=== PATIENT | male | born 1975 | race African-American/Black ===

== ENCOUNTER 2020-06-02 09:59 | Emergency (ER) | payer OTHER ==
[2020-06-02 10:10] VITALS: BP 130/81; PULSE 68; TEMP 98.1; BMI 26.4
[2020-06-02] MEDS ORDERED: IBUPROFEN 600 MG TABLET (FP) PO ONE ×2 (10:31→10:33)
--- NOTE | 2020-06-02 10:58 | PDOC ---
History of Present Illness - General Chief Complaint: Pain, Acute Stated Complaint: LFT HIP INJURY Time Seen by Provider: 06/02/20 10:26 History Source: Patient Exam Limitations: No Limitations - History of Present Illness Initial Comments: 06/02/20 10:52 Patient is a 45-year-old male with no past medical history who presents to the ED with complaint of left hip/groin pain that has been worsening over the last 1 week. 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 He stepped into the truck at one point and felt sharp pain in his left groin. He states he has difficulty with walking. He denies any numbness or tingling. He denies any back pain. He denies any falls. He has no allergies to medications. He has taken extra strength Tylenol without any relief of his pain. Past History - Medical History Allergies/Adverse Reactions: Allergies Allergy/AdvReac Type Severity Reaction Status Date / Time No Known Allergies Allergy Verified 11/19/13 13:28 Home Medications: Ambulatory Orders No Home Medications 0 dose .ROUTE UTDICT 11/19/13 Metaxalone [Skelaxin] 800 mg PO TID PRN #20 tablet 06/30/15 Ibuprofen [Motrin -] 600 mg PO TID PRN #21 tablet 06/02/20 Asthma: Yes COPD: No - Psycho-Social/Smoking History Smoking History: Never smoked Have you smoked in the past 12 months: No Number of Cigarettes Smoked Daily: 0 Information on smoking cessation initiated: No - Substance Abuse Hx (Audit-C & DAST Scrn) How often the patient has a drink containing alcohol: Never Score: In Men: 4 or > Positive; In Women: 3 or > Positive: 0 Screen Result (Pos requires Nsg. Audit-10AR): Negative In the last yr the pt used illegal drug/Rx for NonMed reason: No Score: Yes response is considered Positive: 0 Screen Result (Positive result requires Nsg. DAST-10): Negative Review of Systems - Review of Systems Comments:: 06/02/20 10:53 - Review of Systems Able to Perform ROS?: Yes Constitutional: No: Fever, Chills, Loss of Appetite, Night Sweats, Weakness HEENTM: No: Eye Pain, Vision changes, Ear Pain, Throat Pain, Throat Swelling, Mouth Pain, Difficulty Swallowing Respiratory: No: Cough, Shortness of Breath, Wheezing, Sputum Production Cardiac (ROS): No: Chest Pain, Chest Tightness, Palpitations, Irregular Heart Beat, Edema ABD/GI: No: Nausea, Vomiting, Abdominal Pain, Diarrhea : No Dysuria, No Hematuria, No Frequency, No Urgency Musculoskeletal: No: Muscle Pain, Back Pain, Joint Pain, Muscle Weakness, Neck Pain; positive: Left groin/hip pain Integumentary: No: Lesions, Rash Neurological: No: Headache, Numbness, Tingling, Weakness, Speech Difficulties *Physical Exam - Vital Signs Last Vital Signs Temp Pulse Resp BP Pulse Ox 98.1 F 68 16 130/81 98 06/02/20 10:07 06/02/20 10:07 06/02/20 10:07 06/02/20 10:07 06/02/20 10:07 - Physical Exam 06/02/20 10:53 - Physical Exam General Appearance: Nourished, Appropriately Dressed, No Distress HEENT: EOMI, Normal Voice, Hearing Grossly Normal, Neck: Supple, No Lymphadenopathy (R), No Lymphadenopathy (L), No Rigidity, No Decreased range of motion Respiratory/Chest: Lungs Clear, Normal Breath Sounds. No Respiratory Distress, No Accessory Muscle Use Cardiovascular: Regular Rhythm, Regular Rate, S1, S2 Gastrointestinal/Abdominal: Normal Bowel Sounds, Soft. Non-tender, No Guarding, No Rebound, No Rigidity Musculoskeletal: Normal Inspection. No Decreased Range of Motion; no decreased range of motion of the left hip. Tenderness to the anterior hip to palpation along the origin of the abductor muscles anteriorly. No pain with external or internal rotation of the hip. No tenderness over the trochanteric bursa. No tenderness over the SI joint. Extremity: Normal Capillary Refill, Normal Inspection Integumentary: Normal Color, Dry. No Rash Neurologic: client care specialist II-XII NML intact, Fully Oriented, Alert, Normal Mood/Affect, Normal Response ED Treatment Course - RADIOLOGY Radiology Studies Ordered: Category Date Time Status HIP & PELVIS-LEFT [RAD] Stat Radiology 06/02/20 10:31 Ordered Medical Decision Making - Medical Decision Making 06/02/20 10:56 Assessment: Patient is a 45-year-old male with left anterior hip pain for the last 1 week. Plan: -Left hip x-ray performed which shows no acute fracture or dislocation. -Motrin ordered -The patient has been made aware that his left hip x-ray is negative for acute pathology. We will discharge him with a prescription for NSAIDs and have him follow-up with orthopedics for further evaluation and treatment. He has been made aware that he may require an MRI as an outpatient for further evaluation. He understands and agrees with this treatment plan and he is stable for discharge. Discharge - Discharge Information Problems reviewed: Yes Clinical Impression/Diagnosis: Left hip pain Condition: Stable Disposition: HOME - Additional Discharge Information Prescriptions: Ibuprofen [Motrin -] 600 mg PO TID PRN #21 tablet PRN Reason: Pain - Follow up/Referral Referrals: Chapin Beal MD [Staff Physician] - - Patient Discharge Instructions Patient Printed Discharge Instructions: DI for Hip Pain Additional Instructions: Avoid any strenuous activity. Take the ibuprofen as prescribed but be sure to take with food. You can take it only as needed. Be sure to follow-up with orthopedics either by our referral or through Worker's Compensation. Get plenty of rest and drink plenty of fluids. Avoid repetitive motion as this can worsen your symptoms. - Post Discharge Activity Work/Back to School Note: Back to Work
--- OUTSIDE RECORDS SUMMARY | 2020-06-02 11:54 | XMS ---
:1975 [facility] Providers Name Role Phone Pelon Valente Unavailable Unavailable Re-disclosure Warning The records that you are about to access may contain information from federally- assisted alcohol or drug abuse programs. If such information is present, then the following federally mandated warning applies: This information has been disclosed to you from records protected by federal confidentiality rules (42 CFR part 2). The federal rules prohibit you from making any further disclosure of this information unless further disclosure is expressly permitted by the written consent of the person to whom it pertains or as otherwise permitted by 42 CFR part 2. A general authorization for the release of medical or other information is NOT sufficient for this purpose. The Federal rules restrict any use of the information to criminally investigate or prosecute any alcohol or drug abuse patient.The records that you are about to access may contain highly sensitive health information, the redisclosure of which is protected by Article 27-F of the [facility] Public Health law. If you continue you may haveaccess to information: Regarding HIV / AIDS; Provided by facilities licensed or operated by the [facility] Office of Mental Health; or Provided by the [facility] Office for People With Developmental Disabilities. If such information is present, then the following [facility] mandated warning applies: This information has been disclosed to you from confidential records which are protected by state law. State law prohibits you from making any further disclosure of this information without the specific written consent of the person to whom it pertains, or as otherwise permitted by law. Any unauthorized further disclosure in violation of state law may result in a fine or nursing home sentence or both. A general authorization for the release of medical or other information is NOT sufficient authorization for further disclosure. Encounters Encounter Providers Location Date Indications Data Source(s ) Emergency Attender: Pelon 5T-EMERG 05/01/2019 CHEST PAINS [facility] 12:12:00 PM EDT Hospital - 05/01/2019 02:40:00 PM EDT CHEST PAINS Patient discharged. Medications Medication Brand Start Product Dose Route Administrative Pharmacy [facility] Indications Reaction Description Data Name Date Form Instructions Instructions Source(s) Famotidine Pepcid 05/01/ TABLET 1 ORAL complet [facility] 20 MG Oral 20 mg 2018 {tab( ed Health Tablet oral 02:31: s)} System [Pepcid] tablet 18 PM Pepcid 20 EDT mg oral tablet It is very important that you take or us e this exactly as directed. Do not skip doses or discontinue unless directed by your doctor.Obtain medical advice before taking any non-prescription drugs as dylan e may affect the action of this medication. Insurance Providers Payer name Policy type Policy ID Covered Covered republican's Policy P uriel / Coverage republican ID relationship to [employer] type [facility] PENDING [id number] SP [id number] WC/NF ONLY Self Pay Self Pay 1 Blue [employer] Blue Cross [id number] 1 [id number] PPO Problems, Conditions, and Diagnoses Code Display Name Description Problem Type Effective Dates Data Source(s) K21.9 Gastro-esophageal GERD Diagnosis 05/01/2019 [facility] ount reflux disease (gastroesophageal 12:12:00 PM ED T [facility] without reflux disease) esophagitis CHEST PAINS CHEST PAINS Diagnosis 05/01/2019 [facility] 12:12:00 PM EDT [facility] spital Surgeries/Procedures Procedure Description Date Indications Data Source(s) Electrocardiogram 12 Lead 05/01/2019 [facility] 12:17:00 PM EDT System - 05/01/2019 12:17:00 PM EDT Results ID Date Data Source [id number] 05/01/2019 12:37:00 PM EDT [facility] Name Value Range Interpretation Description Data Sup porting Code Source(s) Document(s ) Leukocytes 3.0 4.8 - Below low normal WBC Count [facility] [#/volume] in {10^3_u 10.8 Health Unspecified L} 10^3 uL System specimen by Automated count Hemoglobin 13.1 14.0 - Below low normal Hemoglobin [facility] [Mass/volume] in {gm/dL} 18.0 Health Blood gm/dL System Erythrocytes 4.42 4.40 - Normal (applies RBC Count [facility] [#/volume] in {10^6_u 5.90 to non-numeric Health Blood by L} 10^6 uL results) System Automated count Hematocrit 39.6 % 41.0 - Below low normal Hematocrit [facility] [Volume 53.0 % Health Fraction] of System Blood Erythrocyte mean 29.6 pg 26.0 - Normal (applies MCH [facility] corpuscular 34.0 pg to non-numeric Health hemoglobin results) System [Entitic mass] by Automated count Erythrocyte mean 89.6 fl 83.0 - Normal (applies MCV [facility] corpuscular 98.0 fl to non-numeric Health volume [Entitic results) System volume] by Automated count Platelets 168 130 - Normal (applies Platelet Count [facility] [#/volume] in {10^3_u 400 to non-numeric Health Plasma by L} 10^3 uL results) System Automated count Erythrocyte 13.4 % 11.5 - Normal (applies RDW-CV [facility] distribution 14.5 % to non-numeric Health width [Entitic results) System volume] by Automated count Erythrocyte mean 33.1 33.0 - Normal (applies MCHC [facility] corpuscular {gm/dL} 37.0 to non-numeric Health hemoglobin gm/dL results) System concentration [Mass/volume] by Automated count Neutrophils 1.6 2.0 - Below low normal Neutrophil # [facility] [#/volume] in {10^3_u 8.1 Health Body fluid L} 10^3 uL System Monocytes 0.2 0.3 - Below low normal Monocyte # [facility] [#/volume] in {10^3_u 0.9 Health Blood by Manual L} 10^3 uL System count Eosinophils 0.12 0.05 - Normal (applies Eosinophil # [facility] [#/volume] in {10^3_u 0.30 to non-numeric Health Blood L} 10^3 uL results) System Platelet mean 12.1 fl 7.4 - Above high MPV [facility] volume [Entitic 10.4 fl normal Health volume] in Blood System by Automated count Basophils 0.01 0.00 - Normal (applies Basophil # [facility] [#/volume] in {10^3_u 0.10 to non-numeric Health Blood by L} 10^3 uL results) System Automated count Neutrophils/100 52.2 % 55.0 - Below low normal Neutrophil % [facility] leukocytes in 75.0 % Health Blood by System Automated count Lymphocyte # 1.1 1.0 - Normal (applies Lymphocyte # [facility] {10^3_u 5.5 to non-numeric Health L} 10^3 uL results) System Monocytes/100 6.6 % 6.0 - Normal (applies Monocyte % [facility] leukocytes in 9.0 % to non-numeric Health Blood results) System Basophils/100 0.3 % 0.0 - Normal (applies Basophil % [facility] leukocytes in 1.0 % to non-numeric Health Unspecified results) System specimen by Manual count Eosinophils/100 4.0 % 0.0 - Normal (applies Eosinophil % [facility] leukocytes in 4.0 % to non-numeric Health Unspecified results) System specimen Lymphocytes 36.9 % 21.0 - Normal (applies Lymphocyte % [facility] [#/volume] in 51.0 % to non-numeric Health Blood by results) System Automated count Immature 0.0 % 0.0 - Normal (applies Immature [facility] Granulocytes % 0.8 % to non-numeric Granulocytes % Healt h results) System Nucleated 0.0 0.0 - Normal (applies NRBC % [facility] erythrocytes {/100_W 0.0 to non-numeric Health [#/volume] in BC} /100 results) System Body fluid WBC NRBC # 0.00 0.90 - Below low normal NRBC # [facility] {10^3_u 11.20 Health L} 10^3 uL System Immature 0.00 0.00 - Normal (applies Immature [facility] Granulocytes # {10^3_u 0.09 to non-numeric Granulocytes # [facility]alt [facility] L} 10^3 uL results) System ID Date Data Source [id number] 05/01/2019 12:37:00 PM EDT [facility] Name Value Range Interpretation Description Data Sup porting Code Source(s) Document(s ) Lipase 32 U/L 8 - 78 Normal (applies to Lipase, Serum [facility] [Enzymatic U/L non-numeric Health System activity/v results) olume] in Serum or Plasma ID Date Data Source [id number] 05/01/2019 12:37:00 PM EDT [facility] Name Value Range Interpretation Description Data Sup porting Code Source(s) Document(s ) Potassium 3.9 3.6 - Normal (applies Potassium, [facility] [Mass/volume] in mmol/L 5.0 to non-numeric Serum Health Serum or Plasma mmol/L results) System Sodium 145 137 - Normal (applies Sodium, Serum [facility] [Moles/volume] in mmol/L 145 to non-numeric Health Serum or Plasma mmol/L results) System Chloride 109 98 - Above high Chloride, [facility] [Moles/volume] in mmol/L 107 normal Serum Health Serum or Plasma mmol/L System Carbon dioxide, 27.0 22.0 - Normal (applies CO2, Serum [facility] total mmol/L 30.0 to non-numeric Health [Moles/volume] in mmol/L results) System Serum or Plasma Glucose 95 75 - Normal (applies Glucose, [facility] [Mass/volume] in mg/dL 110 to non-numeric Serum Health Serum or Plasma mg/dL results) System Urea nitrogen 14 9 - 21 Normal (applies Blood Urea [facility] [Mass/volume] in mg/dl mg/dl to non-numeric Nitrogen, Health Serum or Plasma results) Serum System Total Protein 6.1 6.3 - Below low normal Total Protein [facility] mg/dl 8.2 Health mg/dl System Creatinine 1.10 0.80 - Normal (applies Creatinine, [facility] [Mass/volume] in mg/dl 1.50 to non-numeric Serum Health Serum or Plasma mg/dl results) System Alkaline 66 38 - Normal (applies Alkaline [facility] phosphatase {IU/L} 126 to non-numeric Phosphatase, Health isoenzymes IU/L results) Serum System [Enzymatic activity/volume] in Serum or Plasma by Heat stability Bilirubin.total 0.5 0.2 - Normal (applies Bilirubin, [facility] [Mass/volume] in mg/dl 1.3 to non-numeric Serum Total Health Serum or Plasma mg/dl results) System Aspartate 22 5 - 40 Normal (applies Aspartate [facility] aminotransferase {IU/L} IU/L to non-numeric Transaminase, Heal th [Enzymatic results) Serum System activity/volume] in Serum or Plasma by With P-5'-P Direct Bilirubin 0.3 0.0 - Normal (applies Direct [facility] mg/dl 0.4 to non-numeric Bilirubin Health mg/dl results) System I. Phosphorus 4.3 2.5 - Normal (applies I. Phosphorus [facility] mg/dl 4.5 to non-numeric Health mg/dl results) System Albumin 3.9 3.9 - Normal (applies Albumin, [facility] [Mass/volume] in {gm/dl} 5.0 to non-numeric Serum Health Serum or Plasma gm/dl results) System Alanine 12 7 - 56 Normal (applies Alanine [facility] aminotransferase {IU/L} IU/L to non-numeric Aminotransfer [facility] [Enzymatic results) ase, Serum System activity/volume] in Serum or Plasma Calcium 8.9 8.4 - Normal (applies Calcium, [facility] [Mass/volume] in mg/dl 10.2 to non-numeric Total Serum Health Serum or Plasma mg/dl results) System A/G Ratio 1.77 Normal (applies A/G Ratio [facility] to non-numeric Health results) System Glomerular 72.00 Normal (applies GFR [facility] filtration to non-numeric Health rate/1.73 sq results) System M.predicted [Volume Rate/Area] in Serum or Plasma by Creatinine-based formula (CKD-EPI) eGFR will provide clinicians with a more accurate indicator of renal function then the serum creatinine. The eGFR is automa tically calculated from an empiric formula (endorsed by the National [employer] ion) which incorporates age, sex, and race.Clinicians may notice surprisingly low GFR's with serum creatinine valueswithin normal range- particularly in elderly wo men (with low muscle mass).In the hospital setting, the eGFR should add an element of safety in drug dosing, in assessing the risk of IV contrast administration, and in assessing vascular risk.The NKF staging system is as follows:Normal: eGFR >90 with no kidney markersStage 1: eGFR >90 with kidney markers*Stage 2: eGFR 60- 89Stage 3: eGFR 30-59Stage 4: eGFR 15-29Stage 5: eGFR <15 (usually requir ing dialysis)*Markers include: Proteinuria, Hematuria, abnormal imaging-studies, or other blood or urine test abnormalities Urate [Mass/volume] 6.0 mg/dl 3.5 - 8.5 Normal (applies Uric Acid, [facility] in Serum or Plasma mg/dl to non-numeric Serum Health System results) Anion gap in Serum 9.00 mmol/L 8.00 - Normal (applies Anion Gap [facility] or Plasma 12.00 to non-numeric Health System mmol/L results) ID Date Data Source [id number] 05/01/2019 12:37:00 PM EDT [facility] Name Value Range Interpretation Description Data Sup porting Code Source(s) Document(s ) Troponin I 0.00 0.00 - Normal (applies Troponin I [facility] Quantitative - ng/mL 0.04 to non-numeric Quantitative - Healt h MV Only ng/mL results) [facility] Only System Procedure Vital Signs ID Date Data Source UNK Name Value Range Interpretation Code Description Data Source(s) Body temperature 97.4 [degF] 0 - 200 Normal (applies to 97.4 [degF ] [facility] non-numeric results) [facility] System Body temperature 36.3 Melody 0 - 99.9 Below low normal 36.3 [facility]ody [facility] Diastolic blood 86 mm[Hg] 0 - 999 Above high normal 86 mm[Hg] [facility] Systolic blood 121 mm[Hg] 0 - 999 Normal (applies to 121 mm[Hg] [facility] pressure non-numeric results) [facility] System Deprecated Oxygen 100 % 0 - 999 Normal (applies to 100 % [facility] saturation in non-numeric results) H ealt System Capillary blood by Oximetry Respiratory rate 17 0 - 999 Normal (applies to 17 [facility] non-numeric results) [facility] System Heart rate 62 0 - 999 Normal (applies to 62 [facility] non-numeric results) [facility] System Body surface area 1.9 m2 1.9 m2 [facility] Derived from Health Syste m formula Body mass index 25.1 kg/m2 25.1 kg/m2 [facility] (BMI) [Ratio] [facility] Syst em Body weight 77.11 kg 77.11 kg [facility] System Body height 175.26 cm 175.26 cm [facility] Patient Treatment Plan of Care Planned Activity Planned Date Details Description Data Source (s) Famotidine 20 MG Oral 05/01/2019 02:31:18 [facility] Tablet [Pepcid] PM EDT System
== END 2020-06-02 11:08 | disposition home or self-care (01) ==
LOC: JERFT 09:59
DX: M25.552 Pain in left hip (principal)
CPT/HCPCS: 73523-TC-FY; 99284-25

== ENCOUNTER 2020-10-19 12:13 | Emergency (ER) | payer OTHER ==
[2020-10-19 12:20] VITALS: BP 128/79; PULSE 56; TEMP 98; BMI 28.0
[2020-10-19] MEDS ORDERED: KETOROLAC TROMETHAMINE 30 MG/1 ML VIAL IM ONE (12:32)
[2020-10-19] MEDS ORDERED: diazePAM 5 MG TABLET PO ONE (12:34)
[2020-10-19] MEDS ORDERED: diazePAM 5 MG TABLET ONE (12:41)
[2020-10-19] MEDS ORDERED: KETOROLAC TROMETHAMINE 30 MG/1 ML VIAL ONE (12:41)
== END 2020-10-19 13:56 | disposition home or self-care (01) ==
LOC: JERFT 12:13
PROC: 3E0233Z Introduction of Anti-inflammatory into Muscle, Percutaneous Approach (ICD-10-PCS; principal; 2020-10-19)
DX: M54.31 Sciatica, right side (principal)
CPT/HCPCS: 99284-25

== ENCOUNTER 2020-10-26 11:59 | Emergency (ER) | payer OTHER ==
[2020-10-26 12:11] VITALS: BP 117/70; PULSE 69; BMI 26.6
[2020-10-26] MEDS ORDERED: LIDOCAINE 5% TOPICAL PATCH TP ONE (12:41)
[2020-10-26] MEDS ORDERED: LIDOCAINE 5% TOPICAL PATCH ONE (12:42)
== END 2020-10-26 12:59 | disposition home or self-care (01) ==
LOC: JERFT 11:59
DX: M54.31 Sciatica, right side (principal); G60.9 Hereditary and idiopathic neuropathy, unspecified
CPT/HCPCS: 99283-25

== ENCOUNTER 2020-11-25 08:00 | Inpatient (IN) | payer OTHER ==
[2020-11-22 11:11] VITALS: BMI 26.6
[2021-01-06] MEDS ORDERED: DEXMEDETOMIDINE HCL 200 MCG/2 ML IVPB ONE (06:32)
[2021-01-06] MEDS ORDERED: ACETAMINOPHEN INJECTION 100 ML IVPB ONE (06:32)
[2021-01-06 06:46] LABS: HEMATOCRIT 43.4 % (35.4-49); HEMOGLOBIN 14.6 GM/dL (11.7-16.9); MCH 30.7 pg (25.7-33.7); MCHC 33.6 g/dl (32.0-35.9); MEAN CELL VOLUME 91.4 fl (80-96); PLATELET COUNT 146 K/MM3 (134-434); RBC 4.75 M/mm3 (4.00-5.60); RDW 14.3 % (11.9-15.9); URINE APPEARANCE CLEAR; URINE BILIRUBIN NEGATIVE (NEGATIVE); URINE COLOR YELLOW; URINE GLUCOSE (UA) NEGATIVE (NEGATIVE); URINE KETONE NEGATIVE (NEGATIVE); URINE LEUK ESTERASE NEGATIVE (NEGATIVE); URINE NITRITE NEGATIVE (NEGATIVE); URINE PROTEIN NEGATIVE (NEGATIVE); URINE UROBILINOGEN 0.2 mg/dL (0.2-1.0); WHITE BLOOD COUNT 4.3 K/mm3 (4.0-10.0)
[2021-01-06] MEDS ORDERED: LIDOCAINE HCL 2% JELLY (5 ML/TUBE) ONE (06:46)
[2021-01-06] MEDS ORDERED: ONDANSETRON 4 MG/2 ML VIAL ONE (06:46)
[2021-01-06] MEDS ORDERED: LIDOCAINE HCL/PF 2% SDV 5ML VIAL ONE (06:46)
[2021-01-06] MEDS ORDERED: ceFAZolin SODIUM 1 GM VIAL ONE (06:46)
[2021-01-06 06:57] LABS: INR 0.92 (0.83-1.09); PROTHROMBIN TIME (PATIENT) 11.2 SEC (9.7-13.0)
[2021-01-06 07:00] LABS: ACTIVATED PTT 33.5 SECONDS (25.2-36.5)
[2021-01-06] MEDS ORDERED: PROPOFOL 20 ML ONE ×2 (07:00)
[2021-01-06] MEDS ORDERED: EPHEDRINE SULFATE/0.9% NACL/PF 50 MG/10 ML SYRINGE NR ONE (07:00)
[2021-01-06] MEDS ORDERED: GENTAMICIN SO4 80 MG/2 ML VIAL ONE (07:01)
[2021-01-06] MEDS ORDERED: ROCURONIUM BROMIDE 50 MG/5 ML SYRINGE ONE ×2 (07:01→10:15)
[2021-01-06] MEDS ORDERED: VANCOMYCIN 1,000 MG VIAL (RESTRICTED TO ID ONLY) ONE ×2 (07:02→08:10)
[2021-01-06] MEDS ORDERED: BUPIVACAINE LIPOSOME/PF (EXPAREL) 266 MG/20 ML VIAL ONE (07:02)
[2021-01-06] MEDS ORDERED: THROMBIN (BOVINE) 5,000 UNIT VIAL TP ONE ×2 (07:02→09:38)
[2021-01-06] MEDS ORDERED: LIDOCAINE 1%/EPI 1:100000 (50 ML MULTI DOSE VIAL) ONE (07:02)
[2021-01-06] MEDS ORDERED: fentaNYL CITRATE 250 MCG/5 ML VIAL ONE (07:03)
[2021-01-06] MEDS ORDERED: KETAMINE HCL 200 MG/20 ML VIAL ONE (07:03)
[2021-01-06] MEDS ORDERED: MIDAZOLAM HCL 2 MG/2 ML SINGLE DOSE VIAL ONE ×2 (07:03→08:17)
[2021-01-06 07:05] LABS: CALCIUM 8.7 mg/dL (8.5-10.1)
[2021-01-06 07:06] LABS: ALBUMIN 3.9 g/dl (3.4-5.0); BLOOD UREA NITROGEN 11.1 mg/dL (7-18)
[2021-01-06 07:09] LABS: CREATININE 1.1 mg/dL (0.55-1.3)
[2021-01-06 07:10] LABS: BILIRUBIN,TOTAL 0.2 mg/dL (0.2-1)
[2021-01-06 07:11] LABS: TOT PROT 6.6 g/dl (6.4-8.2)
[2021-01-06] MEDS ORDERED: ONDANSETRON 4 MG/2 ML VIAL IVPUSH PRN ×2 (07:25→12:04)
[2021-01-06] MEDS ORDERED: MORPHINE 5 MG/10 ML AMP - FOR COMPOUNDING USE ONLY ONE (08:07)
[2021-01-06] MEDS ORDERED: TRANEXAMIC ACID 1000 MG/10 ML VIAL ONE (08:10)
[2021-01-06] MEDS ORDERED: SUCCINYLCHOLINE CHLORIDE 200 MG/10 ML SYRINGE ONE (08:36)
[2021-01-06] MEDS ORDERED: VANCOMYCIN 1,000 MG VIAL (RESTRICTED TO ID ONLY) IVPB ONE (08:45)
[2021-01-06] MEDS ORDERED: ceFAZolin 2 GRAM PREMIX BAG IVPB ONE ×2 (08:45→11:48)
[2021-01-06] MEDS ORDERED: LIDOCAINE 1%/EPI 1:100000 (20 ML MULTI DOSE VIAL) IJ ONE (08:59)
[2021-01-06] MEDS ORDERED: NEOSTIGMINE METHYLSULFATE 0.5 MG/1 ML - 10 ML MDV ONE (09:14)
[2021-01-06] MEDS ORDERED: GENTAMICIN SO4 80 MG/2 ML VIAL IVPB ONE (09:38)
[2021-01-06] MEDS ORDERED: BACITRACIN 50,000 UNITS VIAL TP ONE (09:39)
[2021-01-06] MEDS ORDERED: HYDROGEN PEROXIDE 473 ML PO ONE (09:40)
[2021-01-06] MEDS ORDERED: BUPIVACAINE HCL/PF 0.5% (5 MG/ML) 30 ML VIAL IJ ONE (09:43)
[2021-01-06] MEDS ORDERED: BUPIVACAINE LIPOSOME/PF (EXPAREL) 266 MG/20 ML VIAL NR ONE (09:48)
[2021-01-06] MEDS ORDERED: HYDROmorphone HCl 2 MG/ML VIAL SQ PRN (12:04)
[2021-01-06] MEDS ORDERED: diazePAM CARPU-JECT 10 MG/2 ML DISP.SYRIN IVPUSH PRN (12:04)
[2021-01-06] MEDS ORDERED: ALBUTEROL SO4 HFA INHALER IH PRN (12:04)
[2021-01-06] MEDS ORDERED: oxyCODONE HCL 5 MG TABLET PO PRN ×2 (12:04)
[2021-01-06] MEDS ORDERED: ACETAMINOPHEN 1000 MG/100 ML VIAL (NON FORMULARY) IVPB PRN (12:04)
[2021-01-06] MEDS: LACTATED RINGERS SOLUTION 1,000 ML IV SCH ×2 (15:00→23:01)
[2021-01-06] MEDS: CEFAZOLIN 2 GM/D5W 2 GM/50 ML ML IVPB SCH ×2 (17:13→23:02)
[2021-01-07] MEDS: CEFAZOLIN 2 GM/D5W 2 GM/50 ML ML IVPB SCH (05:25)
[2021-01-07 07:33] LABS: HEMATOCRIT 38.4 % (35.4-49); MCH 31.1 pg (25.7-33.7); MCHC 33.9 g/dl (32.0-35.9); MEAN CELL VOLUME 91.6 fl (80-96); MEAN PLT VOLUME 10.7 fl (7.5-11.1); PLATELET COUNT 131 K/MM3 (134-434); RDW 14.4 % (11.9-15.9); WHITE BLOOD COUNT 7.6 K/mm3 (4.0-10.0)
[2021-01-07] MEDS: LACTATED RINGERS SOLUTION 1,000 ML IV SCH ×3 (07:47→17:04)
[2021-01-07 08:00] LABS: BLOOD UREA NITROGEN 8.4 mg/dL (7-18); CALCIUM 8.3 mg/dL (8.5-10.1)
[2021-01-07 08:03] LABS: CREATININE 1.1 mg/dL (0.55-1.3)
[2021-01-07 08:32] LABS: EPI CELLS 1 /uL (0-25.1); HYALINE CASTS 0 /uL (0-3.1); URINE APPEARANCE CLEAR; URINE BACTERIA 10 /uL (0-1359); URINE BILIRUBIN NEGATIVE (NEGATIVE); URINE COLOR YELLOW; URINE GLUCOSE (UA) NEGATIVE (NEGATIVE); URINE KETONE NEGATIVE (NEGATIVE); URINE LEUK ESTERASE NEGATIVE (NEGATIVE); URINE NITRITE NEGATIVE (NEGATIVE); URINE PROTEIN NEGATIVE (NEGATIVE); URINE RBC 6 /uL (0-23.9); URINE UROBILINOGEN 0.2 mg/dL (0.2-1.0); URINE WBC 1 /uL (0-25.8)
[2021-01-07] MEDS ORDERED: oxyCODONE HCL 5 MG TABLET PO PRN (12:16)
[2021-01-07] MEDS ORDERED: diazePAM CARPU-JECT 10 MG/2 ML DISP.SYRIN IVPUSH PRN (12:16)
[2021-01-07] MEDS ORDERED: ONDANSETRON 4 MG/2 ML VIAL IVPUSH PRN (12:16)
[2021-01-07] MEDS ORDERED: HYDROmorphone HCl 2 MG/ML VIAL SQ PRN (12:16)
[2021-01-07] MEDS ORDERED: ALBUTEROL SO4 HFA INHALER IH PRN (12:16)
[2021-01-07] MEDS: ACETAMINOPHEN 1000 MG/100 ML VIAL (NON FORMULARY) IVPB PRN ×2 (15:41→21:11)
[2021-01-07] MEDS: oxyCODONE HCL 5 MG TABLET PO PRN (18:08)
[2021-01-07] MEDS ORDERED: DOCUSATE SODIUM 100 MG CAPSULE (FP) PO ONE (20:48)
[2021-01-07] MEDS ORDERED: ACETAMINOPHEN 1000 MG/100 ML VIAL (NON FORMULARY) IVPB ONE (21:06)
[2021-01-08] MEDS: oxyCODONE HCL 5 MG TABLET PO PRN ×4 (00:11→16:02)
[2021-01-08] MEDS: LACTATED RINGERS SOLUTION 1,000 ML IV SCH ×3 (08:11→22:09)
[2021-01-08 08:37] LABS: HEMATOCRIT 41.5 % (35.4-49); MCH 30.6 pg (25.7-33.7); MCHC 33.7 g/dl (32.0-35.9); MEAN CELL VOLUME 90.8 fl (80-96); MEAN PLT VOLUME 10.7 fl (7.5-11.1); PLATELET COUNT 133 K/MM3 (134-434); RBC 4.57 M/mm3 (4.00-5.60); RDW 13.8 % (11.9-15.9); WHITE BLOOD COUNT 9.7 K/mm3 (4.0-10.0)
[2021-01-08 09:26] LABS: BLOOD UREA NITROGEN 7.2 mg/dL (7-18)
[2021-01-08 09:27] LABS: CALCIUM 8.6 mg/dL (8.5-10.1); MAGNESIUM 1.6 mg/dL (1.8-2.4)
[2021-01-08 09:29] LABS: PHOSPHOROUS 2.6 mg/dL (2.5-4.9)
[2021-01-08] MEDS ORDERED: MAGNESIUM SULF 50% (8.12 MEQ/2 ML-1 GM VIAL) IVPB ONE (09:55)
[2021-01-08] MEDS ORDERED: HYDROmorphone HCl 2 MG/ML VIAL IVPUSH PRN (10:16)
[2021-01-08] MEDS ORDERED: ACETAMINOPHEN 1000 MG/100 ML VIAL (NON FORMULARY) IVPB PRN ×2 (10:16→10:19)
[2021-01-08] MEDS: DOCUSATE SODIUM 100 MG CAPSULE (FP) PO SCH (11:52)
[2021-01-09 08:31] LABS: HEMATOCRIT 40.6 % (35.4-49); HEMOGLOBIN 13.8 GM/dL (11.7-16.9); MCHC 33.9 g/dl (32.0-35.9); MEAN CELL VOLUME 91.4 fl (80-96); MEAN PLT VOLUME 10.1 fl (7.5-11.1); PLATELET COUNT 122 K/MM3 (134-434); RBC 4.45 M/mm3 (4.00-5.60); RDW 14.1 % (11.9-15.9); WHITE BLOOD COUNT 8.2 K/mm3 (4.0-10.0)
[2021-01-09 09:01] LABS: CALCIUM 8.5 mg/dL (8.5-10.1)
[2021-01-09 09:02] LABS: BLOOD UREA NITROGEN 7.6 mg/dL (7-18); MAGNESIUM 1.9 mg/dL (1.8-2.4)
[2021-01-09 09:05] LABS: CREATININE 0.9 mg/dL (0.55-1.3); PHOSPHOROUS 2.5 mg/dL (2.5-4.9)
[2021-01-09] MEDS: DOCUSATE SODIUM 100 MG CAPSULE (FP) PO SCH (10:26)
[2021-01-09] MEDS: LACTATED RINGERS SOLUTION 1,000 ML IV SCH ×2 (10:28→14:38)
[2021-01-09] MEDS: oxyCODONE HCL 5 MG TABLET PO PRN (14:49)
[2021-01-09] MEDS ORDERED: ACETAMINOPHEN 325 MG TABLET (FP) PO PRN (15:27)
[2021-01-10] MEDS: oxyCODONE HCL 5 MG TABLET PO PRN ×3 (01:00→23:20)
[2021-01-10 08:12] LABS: BASO % 0.1 % (0-2.0); EOS % 0.7 % (0-4.5); HEMATOCRIT 38.9 % (35.4-49); HEMOGLOBIN 13.3 GM/dL (11.7-16.9); LYMPH % 13.9 % (8-40); MCH 30.9 pg (25.7-33.7); MCHC 34.2 g/dl (32.0-35.9); MEAN CELL VOLUME 90.2 fl (80-96); MEAN PLT VOLUME 10.2 fl (7.5-11.1); MONO % 10.8 % (3.8-10.2); NEUT % 74.5 % (42.8-82.8); PLATELET COUNT 141 K/MM3 (134-434); RBC 4.32 M/mm3 (4.00-5.60); RDW 13.6 % (11.9-15.9); WHITE BLOOD COUNT 6.5 K/mm3 (4.0-10.0)
[2021-01-10 08:27] LABS: CALCIUM 8.4 mg/dL (8.5-10.1)
[2021-01-10 08:28] LABS: MAGNESIUM 1.8 mg/dL (1.8-2.4)
[2021-01-10] MEDS ORDERED: MAGNESIUM OXIDE 400 MG TABLET (FP) PO ONE (08:29)
[2021-01-10 08:31] LABS: CREATININE 0.8 mg/dL (0.55-1.3); PHOSPHOROUS 2.8 mg/dL (2.5-4.9)
[2021-01-10] MEDS: DOCUSATE SODIUM 100 MG CAPSULE (FP) PO SCH (09:27)
[2021-01-10] MEDS ORDERED: POLYETHYLENE GLYCOL 3350 119 GM BTL PO SCH (10:45)
[2021-01-10] MEDS ORDERED: Methylnaltrexone Bromide 12 MG/0.6 ML KIT SQ ONE (11:00)
[2021-01-10] MEDS: POLYETHYLENE GLYCOL 3350 119 GM BTL PO SCH ×2 (11:09→21:41)
[2021-01-10] MEDS: ACETAMINOPHEN 325 MG TABLET (FP) PO PRN (12:41)
[2021-01-10 13:03] LABS: PH,URINE 7.5 (5.0-8.0); URINE APPEARANCE CLEAR; URINE BILIRUBIN NEGATIVE (NEGATIVE); URINE COLOR YELLOW; URINE GLUCOSE (UA) NEGATIVE (NEGATIVE); URINE KETONE NEGATIVE (NEGATIVE); URINE LEUK ESTERASE NEGATIVE (NEGATIVE); URINE NITRITE NEGATIVE (NEGATIVE); URINE PROTEIN NEGATIVE (NEGATIVE); URINE UROBILINOGEN 0.2 mg/dL (0.2-1.0)
[2021-01-10] MEDS ORDERED: TAMSULOSIN HCL 0.4 MG CAP PO ONE (19:00)
[2021-01-11] MEDS ORDERED: LACTULOSE 20 GM/30 ML UDC (FOR ORAL USE ONLY) PO ONE (07:45)
[2021-01-11 08:13] LABS: HEMATOCRIT 38.5 % (35.4-49); HEMOGLOBIN 13.1 GM/dL (11.7-16.9); MCH 30.6 pg (25.7-33.7); MCHC 33.9 g/dl (32.0-35.9); MEAN CELL VOLUME 90.3 fl (80-96); MEAN PLT VOLUME 10.5 fl (7.5-11.1); PLATELET COUNT 170 K/MM3 (134-434); RBC 4.26 M/mm3 (4.00-5.60); RDW 13.2 % (11.9-15.9)
[2021-01-11] MEDS ORDERED: TAMSULOSIN HCL 0.4 MG CAP PO SCH (08:30)
[2021-01-11 08:43] LABS: BLOOD UREA NITROGEN 11.8 mg/dL (7-18); CALCIUM 8.7 mg/dL (8.5-10.1)
[2021-01-11 08:44] LABS: MAGNESIUM 2.1 mg/dL (1.8-2.4)
[2021-01-11 08:46] LABS: CREATININE 0.8 mg/dL (0.55-1.3); PHOSPHOROUS 3.4 mg/dL (2.5-4.9)
[2021-01-11] MEDS: ACETAMINOPHEN 325 MG TABLET (FP) PO PRN (09:27)
[2021-01-11] MEDS: POLYETHYLENE GLYCOL 3350 119 GM BTL PO SCH (09:28)
[2021-01-11] MEDS: DOCUSATE SODIUM 100 MG CAPSULE (FP) PO SCH (09:28)
[2021-01-11 15:56] VITALS: BP 130/84; PULSE 78; TEMP 98.5
== END 2021-01-11 18:25 | disposition home or self-care (01) | DRG 304 ==
LOC: J4W 01-06 04:02 → UNDOADMIN 01-06 04:02 → J2C 01-06 04:02 → J4W 01-06 15:10 → J2C 01-06 15:10 → J8W 01-07 11:14
PROVIDERS: ADMIT Neurological Surgery; ATTEND Student in an Organized Health Care Education/Training Program
PROC: 0SG3071 Fusion of Lumbosacral Joint with Autologous Tissue Substitute, Posterior Approach, Posterior Column, Open Approach (ICD-10-PCS; 2021-01-06)
PROC: 01NB0ZZ Release Lumbar Nerve, Open Approach (ICD-10-PCS; 2021-01-06)
PROC: B01BZZZ Fluoroscopy of Spinal Cord (ICD-10-PCS; 2021-01-06)
PROC: 0ST40ZZ Resection of Lumbosacral Disc, Open Approach (ICD-10-PCS; 2021-01-06)
PROC: 0JX70ZZ Transfer Back Subcutaneous Tissue and Fascia, Open Approach (ICD-10-PCS; 2021-01-06)
PROC: 4A11X4G Monitoring of Peripheral Nervous Electrical Activity, Intraoperative, External Approach (ICD-10-PCS; 2021-01-06)
PROC: 0SG30AJ Fusion of Lumbosacral Joint with Interbody Fusion Device, Posterior Approach, Anterior Column, Open Approach (ICD-10-PCS; principal; 2021-01-06 08:00)
DX: M51.17 Intervertebral disc disorders with radiculopathy, lumbosacral region (principal); M47.27 Other spondylosis with radiculopathy, lumbosacral region; M48.07 Spinal stenosis, lumbosacral region; J45.20 Mild intermittent asthma, uncomplicated; R50.9 Fever, unspecified
CPT/HCPCS: 36415; 71045-TC-FY; 72131-TC; 76000-TC-FY; 80048; 80053; 81003; 83735; 84100; 85025; 85027; 85610; 85730; 86850; 86900; 86901; 87040; 87086; 93005; 93010; 93971-TC; 97116-GP; 97161-GP; J0131

== ENCOUNTER 2022-01-20 10:13 | Emergency (ER) | payer OTHER ==
[2022-01-20 10:23] VITALS: BP 150/76; PULSE 84; TEMP 98; BMI 26.6
[2022-01-20] MEDS ORDERED: METHOCARBAMOL 500 MG TABLET PO ONE (10:43)
[2022-01-20] MEDS ORDERED: KETOROLAC TROMETHAMINE 60 MG/2 ML VIAL IM ONE (10:43)
[2022-01-20] MEDS ORDERED: LIDOCAINE 5% TOPICAL PATCH TP ONE (10:43)
[2022-01-20] MEDS ORDERED: METHOCARBAMOL 500 MG TABLET ONE ×3 (10:47→10:52)
[2022-01-20] MEDS ORDERED: LIDOCAINE 5% TOPICAL PATCH ONE ×2 (10:47→10:52)
[2022-01-20] MEDS ORDERED: KETOROLAC TROMETHAMINE 60 MG/2 ML VIAL ONE ×2 (10:47→10:52)
[2022-01-20] MEDS ORDERED: CYCLOBENZAPRINE HCL 10 MG TABLET (FP) PO ONE (11:00)
[2022-01-20] MEDS ORDERED: CYCLOBENZAPRINE HCL 10 MG TABLET (FP) ONE (11:01)
== END 2022-01-20 11:41 | disposition home or self-care (01) ==
LOC: JER 10:13
PROC: 3E023GC Introduction of Other Therapeutic Substance into Muscle, Percutaneous Approach (ICD-10-PCS; principal; 2022-01-20)
DX: M54.41 Lumbago with sciatica, right side (principal); M62.830 Muscle spasm of back
CPT/HCPCS: 99284-25